=== PATIENT | female | born 1985 | race Caucasian/White ===

== ENCOUNTER 2018-02-12 06:50 | Day surgery (SDC) | payer OTHER ==
[~2018-02-12] VITALS: Ht 162.6 cm; Wt 56.8 kg
[~2018-02-12 06:50] MED LIST: BACLOFEN10 MG PO; MULTIVITAMINS1 EAC8 PO; NEXPLANON68 MG SUB-Q; PROZAC20 MG PO; VITAMIN D35000 UNI1 PO
[2018-02-12] MEDS ORDERED: CEPHALEXIN500 MG PO (06:59)
--- NOTE | 2018-02-12 09:20 | NUR ---
02/12/18 0920 Deedee Friedman 0902- PT ARRIVES TO PACU FROM OR ON RA WITH 100% SATS. PT ABLE TO VERBALIZE NO PAIN/NAUSEA AND RESPONDS APPROPRIATELY TO COMMANDS AND QUESTIONS. PT ENC NOT TO TOUCH OR RUB NOSE. RIGHT NARES WITH SMALL AMOUNT OF DRAINAGE. GAUZE SATURATED WITH DRAIANGE. NEW GAUZE PLACED BENEATH NASAL SUTURES AND PACKING. 0908- PT ASKING QUESTIONS ABOUT NASAL PACKING AND ENC PT NOT TO TOUCH NOSE/RUB NOSE. DR. FRIEDMAN AT BEDSIDE TO VISUALIZE DRAINAGE PRESENT ON NASAL PACKING AND GAUZE. CONTINUE TO MONITOR DRAINAGE. 0915- PT AWAKE, WITH BED SEMI-FOWLERS. PT STATES NO PAIN/NAUSEA BUT FEELS LIKE SHE NEEDS TO BLOW HER NOSE. 0920- PT COUGHS AND DEEP BREATHS. RA SATS >90%. RESP EVN AND UNLABORED PT MORE AWAKE AND ASKING FOR A SIP OF WATER. WATER PROVIDED. PT TOLERATES.
--- NOTE | 2018-02-12 10:18 | NUR ---
UP TO BR, VOIDS QS. AMB WELL. GUAZE SATURATED WITH SEROSANGINOUS AND CHANGED.
--- NOTE | 2018-02-12 10:19 | NUR ---
PT IS HELPED UP OOB TO THE BATHROOM. SHE AMBULATES HERSELF WITHOUT PROBLEMS.
--- NOTE | 2018-02-12 10:42 | NUR ---
PT IS NAPPING UPON ENTERING THE ROOM. SHE REPORTS SHE IS DOING OK, STARTING TO GET A HEADACHE AND WOULD LIKE SOMETHING FOR THE PAIN. SHE HAS TOLERATED PUDDING AND WATER WITHOUT ISSUE. CALL LIGHT WITHIN REACH. NO OTHER C/O'S AT THIS TIME.
--- NOTE | 2018-02-12 11:31 | NUR ---
PT REPORTS THAT SHE IS READY TO GO HOME. SHE IS EDUCATED ON HOW BEST TO DRESS HERSELF AND TO OPEN HER CURTAIN WHEN READY
--- NOTE | 2018-02-12 11:56 | NUR ---
PT IS GIVEN VERBAL DC INSTRUCTIONS, SHE ASK QUESTIONS AND VERBALIZES UNDERSTANDING. SHE IS TAKEN OUT VIA WHEELCHAIR, SHE TRANSFERS HERSELF FROM THE WC TO CAR.
--- NOTE | 2018-02-12 12:52 | OR ---
[facility] [address], [place] [address] Signed DATE OF OPERATION: 02/12/2018 SURGEON: Andrae Friedman MD PREOPERATIVE DIAGNOSIS: Chronic sinusitis with septal deformity. POSTOPERATIVE DIAGNOSIS: Chronic sinusitis with septal deformity. PROCEDURE: Septoplasty, bilateral internal nasal ethmoidectomy. ANESTHESIA: General LMA. ALFRED, Jan. PREOPERATIVE HISTORY: Evi is a 32-year-old lady with chronic sinus infections. Exam has shown septal deformity. CAT scan shows sinus opacification, mainly in the ethmoids, maxillary. She was taken to the operating room for the above-mentioned procedures. OPERATIVE PROCEDURE AND FINDINGS: After informed consent, the patient was taken to the operating room, placed in supine position where general LMA anesthesia was induced. The patient and procedure were verified. The patient received preoperative intranasal oxymetazoline and intravenous Ancef. Preop CT was viewed throughout. The nasal cavity was inspected with headlight and speculum. Septal deviation on the left side was obstructed with a large spur extending posteriorly. The septal mucosa was injected with 1% lidocaine with epi. The mucosa was elevated off the deviated septal bone and cartilage and this deviation was removed with Sameera. Septum was medialized and airway improved in this manner. The ethmoidectomies were then performed starting on the right side. The middle turbinate was medialized. Ethmoid bulla was taken down with the Sameera. Anterior and posterior ethmoid air cells were opened. The involved sinuses were opened per CT view. Some mild mucosal thickening was noted and polypoid changes. Middle meatal antrostomy was made with a curving curette and widened with the Sameera. Minimal bleeding stopped afterwards. Packing was placed. A Orosco pack coated with Neosporin in the middle meatus and trimmed. Merocel pack coated with Neosporin in the nasal cavity. The same procedure and same findings on the left side. Packing was placed, tied anteriorly over a pad anteriorly. The pharynx was suctioned clear of blood and Electronically Signed By: ANDRAE FRIEDMAN MD 02/12/18 1252 PATIENT NAME: EVI SYED OPERATIVE REPORT DATE OF : 83 REPORT #: [id number] PHYSICIAN: ANDRAE FRIEDMAN MD PCP: CHARLENE WORKMAN MD REPORT IS CONFIDENTIAL AND NOT TO BE RELEASED WITHOUT AUTHORIZATION [address] [address] Signed secretions. Hemostasis was verified. The patient was then awakened, extubated, transported to recovery room in good condition. COMPLICATIONS: No complications. BLOOD LOSS: Around 100 mL. PACKING: Two pieces of Merocel each nostril. SPECIMENS: Right and left sinus contents separately. DRAINS: No drains. Andrae Friedman MD [facility]/[place] /[id number] Copies: ~ Electronically Signed By: ANDRAE FRIEDMAN MD 02/12/18 1252 PATIENT NAME: EVI SYED OPERATIVE REPORT DATE OF : 83 REPORT #: [id number] PHYSICIAN: ANDRAE FRIEDMAN MD PCP: CHARLENE WORKMAN MD REPORT IS CONFIDENTIAL AND NOT TO BE RELEASED WITHOUT AUTHORIZATION
== END 2018-02-12 11:45 | disposition home or self-care (01) ==
LOC: DS 06:50 → OPS 06:50 → DS 08:30 → OPS 08:30
PROVIDERS: Otolaryngology
PROC: 09BU0ZZ Excision of Right Ethmoid Sinus, Open Approach (ICD-10-PCS; 2018-02-12)
PROC: 09SM0ZZ Reposition Nasal Septum, Open Approach (ICD-10-PCS; principal; 2018-02-12 08:30)
PROC: 09BV0ZZ Excision of Left Ethmoid Sinus, Open Approach (ICD-10-PCS; 2018-02-12 08:30)
DX: J32.9 Chronic sinusitis, unspecified (principal); J34.2 Deviated nasal septum; F32.9 Major depressive disorder, single episode, unspecified; Z79.899 Other long term (current) drug therapy
CPT/HCPCS: 00160; 88305; 88311; J0690; J1100; J2405; J2704; J3010; J7120